=== PATIENT | female | born 1945 | race Caucasian/White ===

== ENCOUNTER → 2016-08-22 | Outpatient (CLI) | payer MEDICARE, BC ==
[~2016-08-22] MED LIST: AMLO10TA2 PO; ASPI-557 PO; ATOR20TA59 PO; DULO60CA56 PO; LABE100T PO; LISI40TA4 PO; METF500T4 PO; NAPR220T61 PO; OXYB5TAB10 PO; SITA100T12 PO
== END ==
LOC: NEU 12:16
PROVIDERS: ATTEND Psychiatry & Neurology Neurology
DX: E11.42 Type 2 diabetes mellitus with diabetic polyneuropathy (principal); G56.02 Carpal tunnel syndrome, left upper limb; Z79.84 Long term (current) use of oral hypoglycemic drugs
CPT/HCPCS: 95886; 95912